=== PATIENT | male | born 1960 | race Caucasian/White ===

== ENCOUNTER 2018-06-02 06:53 | Emergency (ER) | payer MEDICAID ==
[~2018-06-02] VITALS: Ht 177.8 cm; Wt 74.8 kg
[2018-06-02] MEDS ORDERED: IPRATROPIUM BROMIDE 0.5 MG/2.5 ML NEBU NEB ONE (07:00)
[2018-06-02] MEDS ORDERED: ALBUTEROL SULFATE 2.5 MG/3 ML NEBU NEB ONE (07:00)
[2018-06-02] MEDS ORDERED: IPRATROPIUM BROMIDE 0.5 MG/2.5 ML NEBU ONE (07:06)
[2018-06-02] MEDS ORDERED: ALBUTEROL SULFATE 2.5 MG/ 0.5 ML NEBU ONE (07:06)
--- NOTE | 2018-06-02 07:06 | NUR ---
RT at bedside for tx,
--- NOTE | 2018-06-02 07:23 | NUR ---
Patient discharged to home in stable conditon. Written and verbal after care instructions given. Patient verbalizes understanding of instructions.pt walks in steady gait. Addendum: 06/02/18 at 0724 by ETIENNE pt deneis to be homeless. pt says has a place to live and he chose the place. [facility] provided for pt.
== END 2018-06-02 07:26 | disposition home or self-care (01) ==
LOC: ER 06:55
DX: J44.9 Chronic obstructive pulmonary disease, unspecified (principal); F17.200 Nicotine dependence, unspecified, uncomplicated; Z59.0 Homelessness
CPT/HCPCS: A4663; J3590

== ENCOUNTER 2019-02-16 03:11 | Emergency (ER) | payer SELFPAY ==
[~2019-02-16] VITALS: Ht 170.2 cm; Wt 68.0 kg
[2019-02-16] MEDS ORDERED: IPRATROPIUM BROMIDE 0.5 MG/2.5 ML NEBU NEB ONE (03:15)
[2019-02-16] MEDS ORDERED: ALBUTEROL SULFATE 2.5 MG/3 ML NEBU NEB ONE (03:15)
[2019-02-16] MEDS ORDERED: predniSONE 20 MG TABLET PO ONE (03:15)
--- NOTE | 2019-02-16 03:15 | NUR ---
Dr. García at bedside for MSE
[2019-02-16] MEDS ORDERED: predniSONE 20 MG TABLET ONE (03:17)
[2019-02-16] MEDS ORDERED: ALBUTEROL SULFATE 2.5 MG/3 ML NEBU ONE (03:22)
[2019-02-16] MEDS ORDERED: IPRATROPIUM BROMIDE 0.5 MG/2.5 ML NEBU ONE (03:22)
--- NOTE | 2019-02-16 03:22 | NUR ---
Pt BIB [facility] via gurney. A&O x4. ambulates with steady gait. c/o SOB x2 hours. breathing even and unlabored. O2 sat at 97% on RA. episodes of non productive cough noted. speech is clear and able to make needs known / follow commands. denies any / GI distress.
--- NOTE | 2019-02-16 03:51 | NUR ---
Patient given written and verbal discharge instructions. Patient verbalizes understanding of instructions. Patient is ambulatory with steady gait. Refuses offer of prison placement. Patient given list of available shelters in surrounding area. Pt walked out of ER in stable gait. No acute distress noted. States he feels so much better after the breathing tx. Respirations even + unlabored.
== END 2019-02-16 04:04 | disposition home or self-care (01) ==
LOC: ER 03:13
DX: J44.9 Chronic obstructive pulmonary disease, unspecified (principal); F17.200 Nicotine dependence, unspecified, uncomplicated; Z59.0 Homelessness
CPT/HCPCS: 94640; 99283; J7512; A4663; J3590

== ENCOUNTER 2019-02-24 01:01 | Emergency (ER) | payer SELFPAY ==
[~2019-02-24] VITALS: Ht 170.2 cm; Wt 72.6 kg
--- NOTE | 2019-02-24 01:01 | NUR ---
Dr. García at bedside for MSE.
[2019-02-24] MEDS ORDERED: predniSONE 20 MG TABLET ONE (01:11)
[2019-02-24] MEDS ORDERED: IPRATROPIUM BROMIDE 0.5 MG/2.5 ML NEBU NEB ONE (01:15)
[2019-02-24] MEDS ORDERED: predniSONE 20 MG TABLET PO ONE (01:15)
[2019-02-24] MEDS ORDERED: ALBUTEROL SULFATE 2.5 MG/3 ML NEBU NEB ONE (01:15)
[2019-02-24] MEDS ORDERED: IPRATROPIUM BROMIDE 0.5 MG/2.5 ML NEBU ONE (01:19)
[2019-02-24] MEDS ORDERED: ALBUTEROL SULFATE 2.5 MG/3 ML NEBU ONE (01:19)
--- NOTE | 2019-02-24 01:20 | NUR ---
Respiratory at bedside.
--- NOTE | 2019-02-24 01:41 | NUR ---
Patient given written and verbal discharge instructions. Patient verbalizes understanding of instructions. Patient is ambulatory with steady gait. Refuses offer of [facility] placement. Patient given list of available shelters in surrounding area. Pt provided food per pt request. VSS, no acute signs of distress, out of ER with steady gait, all belongings taken, pt refused all other services at this time and will arrange own transportation.
[2019-02-24 01:43] VITALS: BP 110/64
== END 2019-02-24 01:44 | disposition home or self-care (01) ==
LOC: ER 01:04
DX: J44.9 Chronic obstructive pulmonary disease, unspecified (principal); F17.200 Nicotine dependence, unspecified, uncomplicated; Z59.0 Homelessness
CPT/HCPCS: 94640; 99283; J7512; A4663; J3590

== ENCOUNTER 2019-03-10 05:08 | Emergency (ER) | payer MEDICAID ==
[~2019-03-10] VITALS: Ht 170.2 cm; Wt 68.0 kg
--- NOTE | 2019-03-10 05:23 | NUR ---
Patient ambulating with steady gait. A&O x4. Breathing even and unlabored. c/o painful skin rash on right abdomen and back x5 days. rash does not cross midline. sudden onset per patient. Pain does not radiate anywhere. Speech is clear and able to make needs known follow commands. Breathing even and unlabored. Denies any / GI distress.
--- NOTE | 2019-03-10 05:29 | NUR ---
Dr. García at bedside for MSE
[2019-03-10] MEDS ORDERED: ALBUTEROL SULFATE 2.5 MG/3 ML NEBU ONE (05:41)
[2019-03-10] MEDS ORDERED: IPRATROPIUM BROMIDE 0.5 MG/2.5 ML NEBU ONE (05:42)
[2019-03-10] MEDS ORDERED: ACYCLOVIR 200 MG CAPSULE ONE (05:43)
[2019-03-10] MEDS ORDERED: IPRATROPIUM BROMIDE 0.5 MG/2.5 ML NEBU NEB ONE (05:45)
[2019-03-10] MEDS ORDERED: ACYCLOVIR 400 MG TABLET PO ONE (05:45)
[2019-03-10] MEDS ORDERED: ALBUTEROL SULFATE 2.5 MG/3 ML NEBU NEB ONE (05:45)
--- NOTE | 2019-03-10 06:11 | NUR ---
Patient given written and verbal discharge instructions. Patient verbalizes understanding of instructions. Patient is ambulatory with steady gait. Refuses offer of retirement placement. Patient given list of available shelters in surrounding area.
== END 2019-03-10 06:11 | disposition home or self-care (01) ==
LOC: ER 05:09
DX: J44.9 Chronic obstructive pulmonary disease, unspecified (principal); B02.9 Zoster without complications; F17.200 Nicotine dependence, unspecified, uncomplicated; F15.10 Other stimulant abuse, uncomplicated; Z59.0 Homelessness
CPT/HCPCS: A4663; J3590

== ENCOUNTER 2019-06-25 19:43 | Emergency (ER) | payer SELFPAY ==
[~2019-06-25] VITALS: Ht 172.7 cm; Wt 68.0 kg
[2019-06-25] MEDS ORDERED: predniSONE 20 MG TABLET ONE (20:10)
[2019-06-25] MEDS ORDERED: ALBUTEROL SULFATE 8 GM HFA.AER.AD IH PRN (20:15)
[2019-06-25] MEDS ORDERED: predniSONE 10 MG TABLET PO ONE (20:15)
--- NOTE | 2019-06-25 20:25 | NUR ---
Pt is in bed. Awake, alert, oriented to self. Afebrile Not in acute distress but verbalizes shortness of breath. Wheezing heard on auscultation. Denies pain, discomfort or any other issues. Proper PPEs in place, patient placed in isolation for respiratory precautions. Full assessment done as recorded. Safety precautions maintained.
--- NOTE | 2019-06-25 21:00 | NUR ---
Patient given written and verbal discharge instructions. Patient verbalizes understanding of instructions. Patient is ambulatory with steady gait. Refuses offer of [facility] placement. Patient given list of available shelters in surrounding area.
[2019-06-25 21:14] VITALS: BP 125/75
== END 2019-06-25 21:00 | disposition home or self-care (01) ==
LOC: ER 19:43
DX: J98.01 Acute bronchospasm (principal); F17.210 Nicotine dependence, cigarettes, uncomplicated; Z59.0 Homelessness; J44.9 Chronic obstructive pulmonary disease, unspecified
CPT/HCPCS: 99283; 71045; 99406; J7512; A4663; J3535

== ENCOUNTER 2024-10-14 05:47 | Emergency (ER) | payer OTHER ==
[~2024-10-14] VITALS: Ht 175.3 cm; Wt 62.1 kg
[~2024-10-14 05:47] MED LIST: ALBU8.5H8 INH; PRED20TA PO; TIOT18CA3 INH
[2024-10-14 05:50] VITALS: O2SAT 97
[2024-10-14] MEDS ORDERED: ALBU18HF2 INH (05:52)
[2024-10-14] MEDS ORDERED: PRED50TA PO (05:52)
[2024-10-14] MEDS ORDERED: ALBUTEROL SULFATE 2.5 MG/3 ML NEBU ONE ×3 (05:56→06:20)
[2024-10-14] MEDS ORDERED: IPRATROPIUM BROMIDE 0.5 MG/2.5 ML NEBU ONE ×2 (05:56→06:20)
[2024-10-14] MEDS: IPRATROPIUM BROMIDE 0.5 MG/2.5 ML NEBU NEB ONE ×2 (06:00→06:28)
[2024-10-14] MEDS: ALBUTEROL SULFATE 2.5 MG/3 ML NEBU NEB ONE ×2 (06:00→06:28)
[2024-10-14 06:05] VITALS: O2SAT 99
[2024-10-14 06:15] VITALS: O2SAT 97
[2024-10-14 06:30] VITALS: O2SAT 99
[2024-10-14] MEDS ORDERED: DOXY100C5 PO (06:45)
[2024-10-14] MEDS ORDERED: DOXYCYCLINE HYCLATE 100 MG TABLET ONE (06:46)
[2024-10-14] MEDS: DOXYCYCLINE HYCLATE 100 MG TABLET PO ONE (06:48)
[2024-10-14 07:51] VITALS: BP 149/100; O2SAT 99
== END 2024-10-14 07:56 | disposition home or self-care (01) ==
LOC: ER 05:47
DX: J44.1 Chronic obstructive pulmonary disease with (acute) exacerbation (principal); F17.210 Nicotine dependence, cigarettes, uncomplicated; F29 Unspecified psychosis not due to a substance or known physiological condition; F15.10 Other stimulant abuse, uncomplicated; Z59.00 Homelessness unspecified; Z79.52 Long term (current) use of systemic steroids
CPT/HCPCS: 71045; A4606; A4663; J3590; J7512

== ENCOUNTER 2024-12-29 18:53 | Emergency (ER) | payer OTHER ==
[~2024-12-29] VITALS: Ht 170.2 cm; Wt 66.7 kg
[~2024-12-29 18:53] MED LIST changes: +ALBU18HF2 INH; +DOXY100C5 PO; +PRED50TA PO
[2024-12-29] MEDS ORDERED: CLINDAMYCIN HCL 300 MG CAPSULE ONE (20:49)
[2024-12-29] MEDS: CLINDAMYCIN HCL 150 MG CAPSULE PO ONE (20:50)
[2024-12-29] MEDS ORDERED: CLIN-118 PO (21:01)
[2024-12-29 21:11] VITALS: BP 146/77
[2024-12-29 21:14] VITALS: BP 146/77; TEMP 208.6; O2SAT 97
== END 2024-12-29 21:15 | disposition home or self-care (01) ==
LOC: ER 18:53
DX: R22.0 Localized swelling, mass and lump, head (principal); J44.9 Chronic obstructive pulmonary disease, unspecified; F17.210 Nicotine dependence, cigarettes, uncomplicated; Z59.00 Homelessness unspecified; Z79.52 Long term (current) use of systemic steroids
CPT/HCPCS: A4606; A4663

== ENCOUNTER 2025-02-16 09:02 | Emergency (ER) | payer OTHER ==
[~2025-02-16] VITALS: Ht 170.2 cm; Wt 68.0 kg
[~2025-02-16 09:02] MED LIST changes: +CLIN-118 PO
[2025-02-16 09:04] VITALS: BP 148/98
[2025-02-16 09:15] VITALS: O2SAT 95
[2025-02-16] MEDS ORDERED: IPRATROPIUM BROMIDE 0.5 MG/2.5 ML NEBU ONE (09:16)
[2025-02-16] MEDS ORDERED: ALBUTEROL SULFATE 2.5 MG/3 ML NEBU ONE (09:16)
[2025-02-16] MEDS: IPRATROPIUM BROMIDE 0.5 MG/2.5 ML NEBU NEB ONE (09:29)
[2025-02-16] MEDS: ALBUTEROL SULFATE 2.5 MG/3 ML NEBU NEB ONE (09:30)
[2025-02-16] MEDS ORDERED: PRED20TA PO (09:52)
[2025-02-16] MEDS ORDERED: ALBU18HF2 INH (09:52)
[2025-02-16] MEDS ORDERED: TIOT18CA3 INH (09:52)
[2025-02-16 10:15] VITALS: O2SAT 99
[2025-02-16 10:30] VITALS: BP 139/85; TEMP 98.5; O2SAT 95
== END 2025-02-16 10:30 | disposition home or self-care (01) ==
LOC: ER 09:02
DX: J44.89 Other specified chronic obstructive pulmonary disease (principal); F17.210 Nicotine dependence, cigarettes, uncomplicated; R07.89 Other chest pain; Z59.00 Homelessness unspecified; Z76.0 Encounter for issue of repeat prescription; Z79.52 Long term (current) use of systemic steroids
CPT/HCPCS: 99285; 71045; 94644; 93005; J7512 ×2; A4606; A4663; J3590